=== PATIENT | male | born 1960 | race Caucasian/White ===

== ENCOUNTER 2024-04-03 08:42 | Outpatient (RCR) | payer OTHER, SELFPAY ==
[2023-03-07 08:53] LABS: Hematocrit* 39.4 % (37.0-53.0); Hemoglobin* 13.0 gm/dL (13.5-17.5); Immature Granulocytes Pct Auto 0.2 %; Lymphocytes Absolute Auto 0.90 K/uL (0.90-2.90); Mean Corpuscular HGB Conc 33 gm/dL (32-36); Mean Corpuscular Hemoglobin 36 pg (26-34); Mean Corpuscular Volume 110 fL (80-100); RDW Coefficient of Variation % 17.0 % (11.5-15.5); Red Blood Count* 3.59 m/uL (4.30-5.90); White Blood Count* 4.42 K/uL (4.50-11.00)
[2023-03-07 08:56] LABS: Immature Granulocytes Abs Auto 0.00 K/uL (0.00-0.30); Slide Review Reflex Yes
[2023-03-07 09:50] LABS: Slide Review Acceptable Review (Acceptable)
[2023-03-10 08:38] LABS: Hematocrit* 37.8 % (37.0-53.0); Hemoglobin* 12.6 gm/dL (13.5-17.5); Immature Granulocytes Pct Auto 0.2 %; Mean Corpuscular HGB Conc 33 gm/dL (32-36); Mean Corpuscular Hemoglobin 37 pg (26-34); Mean Corpuscular Volume 110 fL (80-100); RDW Coefficient of Variation % 16.7 % (11.5-15.5); Red Blood Count* 3.43 m/uL (4.30-5.90); White Blood Count* 4.49 K/uL (4.50-11.00)
[2023-03-10 08:41] LABS: Immature Granulocytes Abs Auto 0.00 K/uL (0.00-0.30); Lymphocytes Absolute Auto 0.90 K/uL (0.90-2.90)
[2023-03-10 08:42] LABS: Slide Review Reflex No
[2023-03-13 09:22] LABS: Hematocrit* 35.4 % (37.0-53.0); Hemoglobin* 11.6 gm/dL (13.5-17.5); Immature Granulocytes Pct Auto 0.2 %; Mean Corpuscular HGB Conc 33 gm/dL (32-36); Mean Corpuscular Hemoglobin 36 pg (26-34); Mean Corpuscular Volume 110 fL (80-100); RDW Coefficient of Variation % 16.9 % (11.5-15.5); Red Blood Count* 3.22 m/uL (4.30-5.90); White Blood Count* 4.43 K/uL (4.50-11.00)
[2023-03-13 09:25] LABS: Immature Granulocytes Abs Auto 0.00 K/uL (0.00-0.30); Lymphocytes Absolute Auto 0.90 K/uL (0.90-2.90); Slide Review Acceptable Review (Acceptable); Slide Review Reflex Yes
[2023-03-16 09:09] LABS: Hematocrit* 34.9 % (37.0-53.0); Hemoglobin* 11.5 gm/dL (13.5-17.5); Mean Corpuscular HGB Conc 33 gm/dL (32-36); Mean Corpuscular Hemoglobin 36 pg (26-34); Mean Corpuscular Volume 110 fL (80-100); Red Blood Count* 3.17 m/uL (4.30-5.90); Slide Review Reflex No; White Blood Count* 4.57 K/uL (4.50-11.00)
[2023-03-20 09:11] LABS: Hematocrit* 32.7 % (37.0-53.0); Hemoglobin* 10.7 gm/dL (13.5-17.5); Immature Granulocytes Pct Auto 0.2 %; Mean Corpuscular HGB Conc 33 gm/dL (32-36); Mean Corpuscular Hemoglobin 37 pg (26-34); Mean Corpuscular Volume 112 fL (80-100); RDW Coefficient of Variation % 18.0 % (11.5-15.5); Red Blood Count* 2.92 m/uL (4.30-5.90); White Blood Count* 4.22 K/uL (4.50-11.00)
[2023-03-20 09:12] LABS: Immature Granulocytes Abs Auto 0.00 K/uL (0.00-0.30); Lymphocytes Absolute Auto 0.90 K/uL (0.90-2.90)
[2023-03-20 11:41] LABS: Slide Review Reflex No
[2023-03-23 09:28] LABS: Hematocrit* 34.9 % (37.0-53.0); Hemoglobin* 11.5 gm/dL (13.5-17.5); Immature Granulocytes Pct Auto 0.2 %; Lymphocytes Absolute Auto 1.10 K/uL (0.90-2.90); Mean Corpuscular HGB Conc 33 gm/dL (32-36); Mean Corpuscular Hemoglobin 37 pg (26-34); Mean Corpuscular Volume 112 fL (80-100); RDW Coefficient of Variation % 17.8 % (11.5-15.5); Red Blood Count* 3.11 m/uL (4.30-5.90); White Blood Count* 4.20 K/uL (4.50-11.00)
[2023-03-23 09:30] LABS: Immature Granulocytes Abs Auto 0.00 K/uL (0.00-0.30); Slide Review Reflex No
[2023-03-28 08:46] LABS: Hematocrit* 33.0 % (37.0-53.0); Hemoglobin* 10.9 gm/dL (13.5-17.5); Immature Granulocytes Pct Auto 0.0 %; Mean Corpuscular HGB Conc 33 gm/dL (32-36); Mean Corpuscular Hemoglobin 36 pg (26-34); Mean Corpuscular Volume 109 fL (80-100); RDW Coefficient of Variation % 17.6 % (11.5-15.5); Red Blood Count* 3.02 m/uL (4.30-5.90); White Blood Count* 3.35 K/uL (4.50-11.00)
[2023-03-28 08:47] LABS: Immature Granulocytes Abs Auto 0.00 K/uL (0.00-0.30); Lymphocytes Absolute Auto 0.70 K/uL (0.90-2.90); Slide Review Reflex No
[2023-03-29 09:10] LABS: Hematocrit* 34.5 % (37.0-53.0); Hemoglobin* 11.5 gm/dL (13.5-17.5); Immature Granulocytes Abs Auto 0.00 K/uL (0.00-0.30); Immature Granulocytes Pct Auto 0.0 %; Mean Corpuscular HGB Conc 33 gm/dL (32-36); Mean Corpuscular Hemoglobin 37 pg (26-34); Mean Corpuscular Volume 110 fL (80-100); RDW Coefficient of Variation % 17.5 % (11.5-15.5); Red Blood Count* 3.15 m/uL (4.30-5.90); White Blood Count* 4.20 K/uL (4.50-11.00)
[2023-03-29 09:15] LABS: Lymphocytes Absolute Auto 0.90 K/uL (0.90-2.90); Slide Review Reflex No
[2023-04-03 10:02] LABS: Hematocrit* 35.7 % (37.0-53.0); Hemoglobin* 11.9 gm/dL (13.5-17.5); Immature Granulocytes Pct Auto 0.8 %; Mean Corpuscular HGB Conc 33 gm/dL (32-36); Mean Corpuscular Hemoglobin 37 pg (26-34); Mean Corpuscular Volume 111 fL (80-100); RDW Coefficient of Variation % 17.7 % (11.5-15.5); Red Blood Count* 3.22 m/uL (4.30-5.90); White Blood Count* 3.83 K/uL (4.50-11.00)
[2023-04-03 10:03] LABS: Immature Granulocytes Abs Auto 0.00 K/uL (0.00-0.30); Lymphocytes Absolute Auto 0.90 K/uL (0.90-2.90)
[2023-04-03 10:04] LABS: Slide Review Reflex No
[2023-04-06 09:31] LABS: Hematocrit* 36.3 % (37.0-53.0); Hemoglobin* 12.0 gm/dL (13.5-17.5); Immature Granulocytes Abs Auto 0.00 K/uL (0.00-0.30); Immature Granulocytes Pct Auto 0.0 %; Mean Corpuscular HGB Conc 33 gm/dL (32-36); Mean Corpuscular Hemoglobin 37 pg (26-34); Mean Corpuscular Volume 112 fL (80-100); RDW Coefficient of Variation % 17.6 % (11.5-15.5); Red Blood Count* 3.25 m/uL (4.30-5.90); White Blood Count* 3.78 K/uL (4.50-11.00)
[2023-04-06 09:38] LABS: Lymphocytes Absolute Auto 1.00 K/uL (0.90-2.90)
[2023-04-06 09:39] LABS: Slide Review Reflex No
[2023-04-12 11:19] LABS: Hemoglobin* 11.7 gm/dL (13.5-17.5)
[2023-04-17 08:43] LABS: Hematocrit* 37.2 % (37.0-53.0); Hemoglobin* 12.1 gm/dL (13.5-17.5); Immature Granulocytes Abs Auto 0.05 K/uL (0.00-0.30); Immature Granulocytes Pct Auto 0.9 %; Lymphocytes Absolute Auto 1.00 K/uL (0.90-2.90); Mean Corpuscular HGB Conc 33 gm/dL (32-36); Mean Corpuscular Hemoglobin 36 pg (26-34); Mean Corpuscular Volume 112 fL (80-100); RDW Coefficient of Variation % 17.8 % (11.5-15.5); Red Blood Count* 3.32 m/uL (4.30-5.90); White Blood Count* 5.80 K/uL (4.50-11.00)
[2023-04-17 08:44] LABS: Slide Review Reflex No
[2023-04-21 09:32] LABS: Hematocrit* 34.9 % (37.0-53.0); Hemoglobin* 11.6 gm/dL (13.5-17.5); Immature Granulocytes Abs Auto 0.01 K/uL (0.00-0.30); Immature Granulocytes Pct Auto 0.2 %; Lymphocytes Absolute Auto 0.90 K/uL (0.90-2.90); Mean Corpuscular HGB Conc 33 gm/dL (32-36); Mean Corpuscular Hemoglobin 37 pg (26-34); Mean Corpuscular Volume 110 fL (80-100); RDW Coefficient of Variation % 17.2 % (11.5-15.5); Red Blood Count* 3.17 m/uL (4.30-5.90); White Blood Count* 5.89 K/uL (4.50-11.00)
[2023-04-21 09:42] LABS: Slide Review Reflex No
[2023-04-26 09:10] LABS: Hematocrit* 35.4 % (37.0-53.0); Hemoglobin* 11.9 gm/dL (13.5-17.5); Immature Granulocytes Abs Auto 0.05 K/uL (0.00-0.30); Immature Granulocytes Pct Auto 0.8 %; Mean Corpuscular HGB Conc 34 gm/dL (32-36); Mean Corpuscular Hemoglobin 37 pg (26-34); Mean Corpuscular Volume 110 fL (80-100); RDW Coefficient of Variation % 17.1 % (11.5-15.5); Red Blood Count* 3.23 m/uL (4.30-5.90); White Blood Count* 6.32 K/uL (4.50-11.00)
[2023-04-26 09:12] LABS: Lymphocytes Absolute Auto 0.80 K/uL (0.90-2.90); Slide Review Reflex No
[2023-05-17 09:27] LABS: Hemoglobin* 13.1 gm/dL (13.5-17.5)
[2023-05-24 09:51] LABS: Hematocrit* 37.9 % (37.0-53.0); Hemoglobin* 12.7 gm/dL (13.5-17.5); Immature Granulocytes Abs Auto 0.01 K/uL (0.00-0.30); Immature Granulocytes Pct Auto 0.2 %; Mean Corpuscular HGB Conc 34 gm/dL (32-36); Mean Corpuscular Hemoglobin 35 pg (26-34); Mean Corpuscular Volume 106 fL (80-100); RDW Coefficient of Variation % 16.4 % (11.5-15.5); Red Blood Count* 3.59 m/uL (4.30-5.90); White Blood Count* 5.14 K/uL (4.50-11.00)
[2023-05-24 09:56] LABS: Lymphocytes Absolute Auto 1.00 K/uL (0.90-2.90); Slide Review Reflex No
[2023-05-31 09:21] LABS: Hematocrit* 39.5 % (37.0-53.0); Hemoglobin* 13.0 gm/dL (13.5-17.5); Immature Granulocytes Abs Auto 0.02 K/uL (0.00-0.30); Immature Granulocytes Pct Auto 0.4 %; Lymphocytes Absolute Auto 1.16 K/uL (0.90-2.90); Mean Corpuscular HGB Conc 33 gm/dL (32-36); Mean Corpuscular Hemoglobin 35 pg (26-34); Mean Corpuscular Volume 107 fL (80-100); RDW Coefficient of Variation % 17.0 % (11.5-15.5); Red Blood Count* 3.71 m/uL (4.30-5.90); White Blood Count* 5.57 K/uL (4.50-11.00)
[2023-05-31 09:27] LABS: Slide Review Reflex No
[2023-06-07 09:15] LABS: Hematocrit* 36.6 % (37.0-53.0); Hemoglobin* 12.3 gm/dL (13.5-17.5); Immature Granulocytes Pct Auto 0.3 %; Mean Corpuscular HGB Conc 34 gm/dL (32-36); Mean Corpuscular Hemoglobin 35 pg (26-34); Mean Corpuscular Volume 104 fL (80-100); RDW Coefficient of Variation % 17.0 % (11.5-15.5); Red Blood Count* 3.52 m/uL (4.30-5.90); White Blood Count* 3.69 K/uL (4.50-11.00)
[2023-06-07 09:30] LABS: Immature Granulocytes Abs Auto 0.00 K/uL (0.00-0.30); Lymphocytes Absolute Auto 1.00 K/uL (0.90-2.90); Slide Review Reflex No
[2023-06-14 09:41] LABS: Hematocrit* 39.0 % (37.0-53.0); Hemoglobin* 13.1 gm/dL (13.5-17.5); Immature Granulocytes Abs Auto 0.01 K/uL (0.00-0.30); Immature Granulocytes Pct Auto 0.2 %; Lymphocytes Absolute Auto 1.19 K/uL (0.90-2.90); Mean Corpuscular HGB Conc 34 gm/dL (32-36); Mean Corpuscular Hemoglobin 35 pg (26-34); Mean Corpuscular Volume 105 fL (80-100); RDW Coefficient of Variation % 17.1 % (11.5-15.5); Red Blood Count* 3.73 m/uL (4.30-5.90); White Blood Count* 4.97 K/uL (4.50-11.00)
[2023-06-14 09:42] LABS: Slide Review Reflex No
[2023-06-21 09:10] LABS: Hematocrit* 35.7 % (37.0-53.0); Hemoglobin* 11.9 gm/dL (13.5-17.5); Immature Granulocytes Pct Auto 0.8 %; Lymphocytes Absolute Auto 0.90 K/uL (0.90-2.90); Mean Corpuscular HGB Conc 33 gm/dL (32-36); Mean Corpuscular Hemoglobin 35 pg (26-34); Mean Corpuscular Volume 105 fL (80-100); RDW Coefficient of Variation % 17.2 % (11.5-15.5); Red Blood Count* 3.40 m/uL (4.30-5.90); White Blood Count* 3.90 K/uL (4.50-11.00)
[2023-06-21 09:16] LABS: Immature Granulocytes Abs Auto 0.00 K/uL (0.00-0.30); Slide Review Reflex No
[2023-07-05 09:19] LABS: Hemoglobin* 13.0 gm/dL (13.5-17.5)
[2023-07-20 09:27] LABS: Hemoglobin* 13.1 gm/dL (13.5-17.5)
[2023-07-26 09:34] LABS: Hemoglobin* 12.5 gm/dL (13.5-17.5)
[2023-08-02 09:10] LABS: Hemoglobin* 11.8 gm/dL (13.5-17.5)
[2023-08-09 09:12] LABS: Hematocrit* 35.8 % (37.0-53.0); Hemoglobin* 11.9 gm/dL (13.5-17.5); Immature Granulocytes Abs Auto 0.01 K/uL (0.00-0.30); Immature Granulocytes Pct Auto 0.2 %; Lymphocytes Absolute Auto 1.03 K/uL (0.90-2.90); Mean Corpuscular HGB Conc 33 gm/dL (32-36); Mean Corpuscular Hemoglobin 35 pg (26-34); Mean Corpuscular Volume 106 fL (80-100); RDW Coefficient of Variation % 18.6 % (11.5-15.5); Red Blood Count* 3.37 m/uL (4.30-5.90); Slide Review Reflex No; White Blood Count* 4.91 K/uL (4.50-11.00)
[2023-08-16 09:27] LABS: Hematocrit* 35.0 % (37.0-53.0); Hemoglobin* 11.7 gm/dL (13.5-17.5); Immature Granulocytes Abs Auto 0.00 K/uL (0.00-0.30); Immature Granulocytes Pct Auto 0.0 %; Mean Corpuscular HGB Conc 33 gm/dL (32-36); Mean Corpuscular Hemoglobin 36 pg (26-34); Mean Corpuscular Volume 106 fL (80-100); RDW Coefficient of Variation % 18.7 % (11.5-15.5); Red Blood Count* 3.30 m/uL (4.30-5.90); White Blood Count* 4.43 K/uL (4.50-11.00)
[2023-08-16 09:29] LABS: Lymphocytes Absolute Auto 1.10 K/uL (0.90-2.90); Slide Review Reflex No
[2023-08-23 09:15] LABS: Hematocrit* 34.6 % (37.0-53.0); Hemoglobin* 11.6 gm/dL (13.5-17.5); Mean Corpuscular HGB Conc 34 gm/dL (32-36); Mean Corpuscular Hemoglobin 36 pg (26-34); Mean Corpuscular Volume 107 fL (80-100); Red Blood Count* 3.24 m/uL (4.30-5.90); White Blood Count* 4.73 K/uL (4.50-11.00)
[2023-08-23 09:37] LABS: Slide Review Reflex No
[2023-08-30 08:56] LABS: Hematocrit* 34.8 % (37.0-53.0); Hemoglobin* 11.5 gm/dL (13.5-17.5); Mean Corpuscular HGB Conc 33 gm/dL (32-36); Mean Corpuscular Hemoglobin 35 pg (26-34); Mean Corpuscular Volume 107 fL (80-100); Red Blood Count* 3.26 m/uL (4.30-5.90); White Blood Count* 3.77 K/uL (4.50-11.00)
[2023-08-30 09:02] LABS: Slide Review Reflex Yes
[2023-08-30 09:24] LABS: Slide Review Acceptable Review (Acceptable)
[2023-09-06 09:13] LABS: Hematocrit* 33.5 % (37.0-53.0); Hemoglobin* 10.8 gm/dL (13.5-17.5); Immature Granulocytes Pct Auto 0.7 %; Mean Corpuscular HGB Conc 32 gm/dL (32-36); Mean Corpuscular Hemoglobin 35 pg (26-34); Mean Corpuscular Volume 109 fL (80-100); RDW Coefficient of Variation % 18.9 % (11.5-15.5); Red Blood Count* 3.07 m/uL (4.30-5.90); White Blood Count* 4.19 K/uL (4.50-11.00)
[2023-09-06 09:15] LABS: Immature Granulocytes Abs Auto 0.00 K/uL (0.00-0.30); Lymphocytes Absolute Auto 1.00 K/uL (0.90-2.90)
[2023-09-06 09:19] LABS: Slide Review Reflex No
[2023-09-13 09:46] LABS: Hematocrit* 37.7 % (37.0-53.0); Hemoglobin* 12.7 gm/dL (13.5-17.5); Red Blood Count* 3.54 m/uL (4.30-5.90); White Blood Count* 5.81 K/uL (4.50-11.00)
[2023-09-13 09:47] LABS: Immature Granulocytes Abs Auto 0.10 K/uL (0.00-0.30); Immature Granulocytes Pct Auto 0.9 %; Lymphocytes Absolute Auto 0.90 K/uL (0.90-2.90); Mean Corpuscular HGB Conc 36 gm/dL (32-36); Mean Corpuscular Hemoglobin 36 pg (26-34); Mean Corpuscular Volume 107 fL (80-100); Slide Review Reflex No
[2023-09-20 09:22] LABS: Hematocrit* 34.3 % (37.0-53.0); Hemoglobin* 11.7 gm/dL (13.5-17.5); Immature Granulocytes Pct Auto 0.5 %; Mean Corpuscular HGB Conc 34 gm/dL (32-36); Mean Corpuscular Hemoglobin 36 pg (26-34); Mean Corpuscular Volume 105 fL (80-100); RDW Coefficient of Variation % 18.5 % (11.5-15.5); Red Blood Count* 3.26 m/uL (4.30-5.90); White Blood Count* 4.02 K/uL (4.50-11.00)
[2023-09-20 09:39] LABS: Immature Granulocytes Abs Auto 0.00 K/uL (0.00-0.30); Lymphocytes Absolute Auto 0.90 K/uL (0.90-2.90); Slide Review Reflex Yes
[2023-09-20 09:47] LABS: Slide Review Acceptable Review (Acceptable)
[2023-09-28 08:54] LABS: Hemoglobin* 12.4 gm/dL (13.5-17.5)
[2023-10-04 08:53] LABS: Hematocrit* 35.7 % (37.0-53.0); Hemoglobin* 11.8 gm/dL (13.5-17.5); Immature Granulocytes Pct Auto 0.2 %; Mean Corpuscular HGB Conc 33 gm/dL (32-36); Mean Corpuscular Hemoglobin 35 pg (26-34); Mean Corpuscular Volume 107 fL (80-100); RDW Coefficient of Variation % 18.4 % (11.5-15.5); Red Blood Count* 3.34 m/uL (4.30-5.90); White Blood Count* 4.47 K/uL (4.50-11.00)
[2023-10-04 08:54] LABS: Immature Granulocytes Abs Auto 0.00 K/uL (0.00-0.30); Lymphocytes Absolute Auto 1.10 K/uL (0.90-2.90)
[2023-10-04 08:55] LABS: Slide Review Reflex No
[2023-10-11 08:51] LABS: Hematocrit* 34.5 % (37.0-53.0); Hemoglobin* 11.7 gm/dL (13.5-17.5); Immature Granulocytes Abs Auto 0.01 K/uL (0.00-0.30); Immature Granulocytes Pct Auto 0.2 %; Mean Corpuscular HGB Conc 34 gm/dL (32-36); Mean Corpuscular Hemoglobin 36 pg (26-34); Mean Corpuscular Volume 107 fL (80-100); RDW Coefficient of Variation % 18.7 % (11.5-15.5); Red Blood Count* 3.24 m/uL (4.30-5.90); White Blood Count* 5.81 K/uL (4.50-11.00)
[2023-10-11 08:52] LABS: Lymphocytes Absolute Auto 0.90 K/uL (0.90-2.90); Slide Review Reflex No
[2023-10-18 09:16] LABS: Hematocrit* 34.7 % (37.0-53.0); Hemoglobin* 11.5 gm/dL (13.5-17.5); Immature Granulocytes Pct Auto 0.5 %; Mean Corpuscular HGB Conc 33 gm/dL (32-36); Mean Corpuscular Hemoglobin 35 pg (26-34); Mean Corpuscular Volume 107 fL (80-100); RDW Coefficient of Variation % 19.2 % (11.5-15.5); Red Blood Count* 3.25 m/uL (4.30-5.90); White Blood Count* 4.17 K/uL (4.50-11.00)
[2023-10-18 09:17] LABS: Immature Granulocytes Abs Auto 0.00 K/uL (0.00-0.30); Lymphocytes Absolute Auto 0.80 K/uL (0.90-2.90); Slide Review Reflex No
[2023-11-01 09:05] LABS: Hemoglobin* 12.4 gm/dL (13.5-17.5)
[2023-11-08 09:02] LABS: Hematocrit* 35.5 % (37.0-53.0); Hemoglobin* 11.8 gm/dL (13.5-17.5); Immature Granulocytes Abs Auto 0.01 K/uL (0.00-0.30); Immature Granulocytes Pct Auto 0.2 %; Mean Corpuscular HGB Conc 33 gm/dL (32-36); Mean Corpuscular Hemoglobin 36 pg (26-34); Mean Corpuscular Volume 107 fL (80-100); RDW Coefficient of Variation % 18.5 % (11.5-15.5); Red Blood Count* 3.32 m/uL (4.30-5.90); White Blood Count* 5.22 K/uL (4.50-11.00)
[2023-11-08 09:05] LABS: Lymphocytes Absolute Auto 0.90 K/uL (0.90-2.90); Slide Review Reflex No
[2023-11-22 09:08] LABS: Hematocrit* 37.1 % (37.0-53.0); Hemoglobin* 12.5 gm/dL (13.5-17.5); Immature Granulocytes Pct Auto 0.3 %; Lymphocytes Absolute Auto 0.90 K/uL (0.90-2.90); Mean Corpuscular HGB Conc 34 gm/dL (32-36); Mean Corpuscular Hemoglobin 35 pg (26-34); Mean Corpuscular Volume 105 fL (80-100); RDW Coefficient of Variation % 18.1 % (11.5-15.5); Red Blood Count* 3.54 m/uL (4.30-5.90); White Blood Count* 3.88 K/uL (4.50-11.00)
[2023-11-22 09:10] LABS: Immature Granulocytes Abs Auto 0.00 K/uL (0.00-0.30); Slide Review Reflex No
[2023-12-06 09:10] LABS: Hematocrit* 37.1 % (37.0-53.0); Hemoglobin* 12.2 gm/dL (13.5-17.5); Immature Granulocytes Abs Auto 0.03 K/uL (0.00-0.30); Immature Granulocytes Pct Auto 0.3 %; Mean Corpuscular HGB Conc 33 gm/dL (32-36); Mean Corpuscular Hemoglobin 35 pg (26-34); Mean Corpuscular Volume 106 fL (80-100); RDW Coefficient of Variation % 18.2 % (11.5-15.5); Red Blood Count* 3.50 m/uL (4.30-5.90); White Blood Count* 10.84 K/uL (4.50-11.00)
[2023-12-06 09:11] LABS: Lymphocytes Absolute Auto 0.80 K/uL (0.90-2.90)
[2023-12-06 09:12] LABS: Slide Review Reflex No
[2023-12-20 09:24] LABS: Hematocrit* 38.2 % (37.0-53.0); Hemoglobin* 13.1 gm/dL (13.5-17.5); Immature Granulocytes Abs Auto 0.01 K/uL (0.00-0.30); Immature Granulocytes Pct Auto 0.2 %; Lymphocytes Absolute Auto 1.18 K/uL (0.90-2.90); Mean Corpuscular HGB Conc 34 gm/dL (32-36); Mean Corpuscular Hemoglobin 36 pg (26-34); Mean Corpuscular Volume 104 fL (80-100); RDW Coefficient of Variation % 18.3 % (11.5-15.5); Red Blood Count* 3.69 m/uL (4.30-5.90); White Blood Count* 5.20 K/uL (4.50-11.00)
[2023-12-20 09:26] LABS: Slide Review Reflex No
[2024-01-10 09:03] LABS: Hemoglobin* 12.8 gm/dL (13.5-17.5)
[2024-01-24 09:01] LABS: Hemoglobin* 12.2 gm/dL (13.5-17.5)
[2024-02-07 09:11] LABS: Hemoglobin* 12.5 gm/dL (13.5-17.5)
[2024-02-21 09:05] LABS: Hemoglobin* 12.5 gm/dL (13.5-17.5)
[2024-03-06 09:18] LABS: Hemoglobin* 12.2 gm/dL (13.5-17.5)
[2024-04-03 08:53] LABS: Hemoglobin* 13.0 gm/dL (13.5-17.5)
== END 2025-03-21 23:59 | disposition home or self-care (01) ==
LOC: LAB 08:42
PROVIDERS: PCP Nurse Practitioner Family; Visit Provider Family Medicine
DX: E83.110 Hereditary hemochromatosis (principal)
CPT/HCPCS: 36415; 85018; 85025; 85027; 99195

== ENCOUNTER 2025-02-28 15:40 | Outpatient (CLI) | payer OTHER, MEDICARE, SELFPAY ==
--- NOTE | 2025-02-28 15:45 | CRLHL7_ITS ---
For Patients: As a result of the Century Cures Act, medical imaging exams and procedure reports are released immediately into your electronic medical record. You may view this report before your referring provider. If you have questions, please contact your health care provider. INDICATION: Cough, lightheadedness. TECHNIQUE: Chest 2 views. COMPARISON: None. FINDINGS: Cardiovascular and mediastinum: Heart size and vasculature are normal in caliber and appearance. Lungs and pleural spaces: Faint patchy airspace opacities throughout the mid and lower right lung. Left lung clear. Bones and soft tissues: No significant findings. IMPRESSION: Faint patchy airspace opacity within the mid and lower right lung, suspicious for pneumonia in the appropriate clinical context. Dictated by Romulo Mueller MD @ 03/03/2025 9:14:59 AM (Electronically Signed)
== END 2025-02-28 15:41 | disposition home or self-care (01) ==
PROVIDERS: PCP Family Medicine; Visit Provider Family Medicine
DX: R05.1 Acute cough (principal); R91.8 Other nonspecific abnormal finding of lung field; R42 Dizziness and giddiness
CPT/HCPCS: 71046